=== PATIENT | female | born 1970 | race Asian ===

== ENCOUNTER 2019-07-26 00:33 | Emergency (ER) | payer BC ==
[~2019-07-26] VITALS: Ht 165.1 cm; Wt 74.8 kg
--- NOTE | 2019-07-26 00:57 | NUR ---
BIBF FOR C/O R HIP PAIN RADIATING TO THE R LEG. PAIN STARTED TWO DAYS AGO W/ NO FALL OR INJURIES.
[2019-07-26] MEDS ORDERED: HYDROCODONE/APAP 5/325MG 1 EACH TABLET PO ONE (01:00)
[2019-07-26] MEDS ORDERED: HYDROCODONE/APAP 5/325MG 1 EACH TABLET ONE (01:05)
[2019-07-26] MEDS ORDERED: HYDROMORPHONE 1 MG/1 ML DISP.SYRIN ONE (02:55)
[2019-07-26] MEDS ORDERED: HYDROMORPHONE 1 MG/1 ML DISP.SYRIN IM ONE (03:00)
--- NOTE | 2019-07-26 04:33 | NUR ---
Patient discharged to home in stable condition. Written and verbal after care instructions given. Patient verbalizes understanding of instruction. no a/r to complication to the dilaudid noted. pt reported feelong better and the son will provide ride to the pt.
[2019-07-26 04:46] VITALS: BP 138/85
== END 2019-07-26 03:30 | disposition home or self-care (01) ==
LOC: ER 00:34
DX: M54.31 Sciatica, right side (principal); F17.200 Nicotine dependence, unspecified, uncomplicated; Z98.890 Other specified postprocedural states
CPT/HCPCS: 73700; 96372; 99284; J1170

== ENCOUNTER 2021-11-20 22:34 | Emergency (ER) | payer BC ==
[~2021-11-20] VITALS: Ht 165.1 cm; Wt 74.8 kg
--- NOTE | 2021-11-20 23:11 | NUR ---
BIBS. R FLANKS PAIN X 4 DAYS. PATIENT ALERT AND ORIENTED X3. AMBULATORY WITH NON LABORED BREATHING. PLACED IN BED 02 ON MONITOR AWAITING MD REID.
--- NOTE | 2021-11-20 23:34 | NUR ---
URINE COLLECTED, SENT TO LAB.
[2021-11-20] MEDS ORDERED: ONDANSETRON HCL/PF 4 MG/2 ML VIAL ONE (23:40)
[2021-11-20] MEDS ORDERED: MORPHINE SULFATE INJ 4 MG/ML DISP.SYRIN ONE (23:40)
[2021-11-20 23:50] LABS: BILIRUBIN,URINE NEGATIVE (NEGATIVE); COLOR,URINE YELLOW (YELLOW); LEUKOCYTE ESTERASE ,URINE NEGATIVE (NEGATIVE); NITRITE, URINE NEGATIVE (NEGATIVE); PROTEIN,URINE NEGATIVE (NEGATIVE); UGLUCOSE NEGATIVE (NEGATIVE); UROBILINOGEN,URINE 0.2 EU/dL (0.2)
--- NOTE | 2021-11-20 23:55 | NUR ---
PT BEING TRANSPORTED TO CT VIA [facility]
[2021-11-21] MEDS ORDERED: MORPHINE SULFATE INJ 2 MG/ML DISP.SYRIN IV ONE
[2021-11-21] MEDS ORDERED: ONDANSETRON HCL/PF 4 MG/2 ML VIAL IVP ONE
[2021-11-21] MEDS ORDERED: IV NS 0.9% 1,000 ML BAG IV ONE
[2021-11-21 00:06] LABS: BASOPHILS # (AUTO) 0.1 K/uL (0.0-0.2); BASOPHILS % (AUTO) 0.5 % (0.0-2.0); EOSINOPHILS % (AUTO) 1.9 % (0.0-6.0); HEMATOCRIT 37 % (33-45); HEMOGLOBIN 12.3 g/dL (11.5-14.8); LYMPHOCYTES % (AUTO) 20.7 % (20.0-44.0); MEAN CORPUSCULAR HGB CONC 33 g/dl (31.0-36.0); MEAN CORPUSCULAR VOLUME 86 fL (82-100); MONOCYTES # (AUTO) 0.9 K/uL (0.1-1.30); MONOCYTES % (AUTO) 6.1 % (2.0-12.0); NEUTROPHILS # (AUTO) 10.2 K/uL (1.8-8.9); NEUTROPHILS % (AUTO) 70.8 % (43.0-81.0); PLATELET COUNT (AUTO) 358 K/uL (150-450); RED BLOOD CELL COUNT(AUTO) 4.37 MIL/uL (4.0-5.2); WHITE BLOOD COUNT (AUTO) 14.4 K/uL (4.3-11.0)
[2021-11-21 00:22] LABS: CALCIUM, SERUM 8.5 mg/dL (8.5-10.1); CREATININE 1.1 mg/dL (0.6-1.3)
[2021-11-21 00:29] LABS: ALBUMIN 3.2 g/dL (3.4-5.0); BILIRUBIN,DIRECT 0.1 mg/dL (0.0-0.2); BILIRUBIN,TOTAL 0.2 mg/dL (0.2-1.0); TOTAL PROTEIN, SERUM 7.4 g/dL (6.4-8.2)
[2021-11-21] MEDS ORDERED: KETOROLAC TROMETHAMINE INJ 30 MG/ML VIAL ONE (00:35)
[2021-11-21] MEDS ORDERED: KETOROLAC TROMETHAMINE INJ 30 MG/ML VIAL IV ONE (01:00)
[2021-11-21 01:30] VITALS: BP 145/72
--- NOTE | 2021-11-21 02:00 | NUR ---
called [facility] and spoke to Jose re CT
[2021-11-21] MEDS ORDERED: TAMS-12 PO (02:32)
[2021-11-21] MEDS ORDERED: IBUP-1957 PO (02:32)
[2021-11-21] MEDS ORDERED: ONDA4TAB5 PO (02:32)
--- NOTE | 2021-11-21 02:55 | NUR ---
Patient discharged to home in stable condition. Written and verbal after care instructions given. Patient verbalizes understanding of instruction.
--- NOTE | 2021-11-21 02:55 | NUR ---
IV removed. Catheter intact and site benign. Pressure and 4x4 applied to site. No bleeding noted.
== END 2021-11-21 03:23 | disposition home or self-care (01) ==
LOC: ER 22:40
DX: N20.0 Calculus of kidney (principal); F17.210 Nicotine dependence, cigarettes, uncomplicated; Z98.890 Other specified postprocedural states
CPT/HCPCS: 36415; 74176; 80048; 80076; 81003; 83690; 84703; 85025; 87086; 96361; 96374; 96375 ×2; 99284; 99406; J1885; J2270; J2405; J7030